=== PATIENT | male | born 1950 | race Caucasian/White ===

== ENCOUNTER → 2019-09-07 08:51 | Outpatient (CLI) | payer MEDICARE, BC, SELFPAY ==
[2019-09-08 16:16] LABS: Covid-19 Nasal PCR Sendout Lex NOT DETECTED
--- NOTE | 2019-09-08 17:31 | PC.NURSE ---
Notified national account manager and patient of negative COVID results. Informed patient he was clear to proceed with his procedure on 09/09/2019.
== END ==
PROVIDERS: Visit Provider Urology
DX: Z03.818 Encounter for observation for suspected exposure to other biological agents ruled out (principal); C67.9 Malignant neoplasm of bladder, unspecified
CPT/HCPCS: U0003

== ENCOUNTER 2019-09-09 09:59 | Day surgery (SDC) | payer MEDICARE, BC, SELFPAY ==
--- NOTE | 2019-09-06 12:19 | SUR.PREOP ---
09/06/19 @ 1213--PHONE CALL MADE TO PATIENT. PATIENT UNDERSTANDS THAT LAB WORK AND COVID-19 TESTING NEEDS TO BE COMPLETED @ 0930 ON 09/07/19. PATIENT UNDERSTANDS IF LAB WORK AND COVID-19 TESTS ARE NOT COMPLETED BY 12PM ON THAT DATE, THE SURGERY SCHEDULED WILL BE CANCELLED AND RESCHEDULED FOR ANOTHER TIME.
[2019-09-06 14:11] VITALS: BMI 27.2
[2019-09-09 10:12] VITALS: BP 144/84; PULSE 92; RESP 18; TEMP 36.7; O2SAT 97
[2019-09-09 10:26] LABS: POC Glucose,Bedside 234 (70-110)
[2019-09-09 11:28] VITALS: BP 137/82; PULSE 71; RESP 16; TEMP 36.9; O2SAT 95
[2019-09-09 11:41] VITALS: BP 137/82; PULSE 71; RESP 18; TEMP 36.9; O2SAT 95
--- NOTE | 2019-09-09 12:44 | P.OP_ITS ---
Date of procedure: 09/09/19 Pre-op Diagnosis:: History of bladder cancer Post-op Diagnosis:: Same Procedure performed:: Surveillance cystoscopy Surgeon:: Cesar Ortega MD Anesthesia: local Estimated blood loss (mL): 0 Clinical Note:: Patient is a 69-year-old white male with history of bladder cancer. His last bladder tumor recurrence was March 2018. His last cystoscopic evaluation was December 2018. He underwent maintenance BCG and January. Operative findings:: No evidence of bladder tumor recurrence. Operative note:: Patient taken to the operating room after informed consent was obtained. On the stretcher he was prepped and draped in the standard surgical fashion and 2% lidocaine placed into the urethra. After few minutes the clamp was removed and a flexible cystoscope introduced into the urethral meatus into the prostatic urethra which showed some moderate hyperplasia. The bladder was entered and e xamined in a systematic fashion. There is no evidence of recurrent bladder tumors, mucosal normalities, stones, diverticula or trabeculation. The ureteral orifices were in the normal anatomic position with clear reflux of urine. Small median lobe was noted on retroflexion of the scope. Scope removed patient procedure well no complications. We discussed a course of maintenance BCG and we will arrange this in the office in the next few weeks. Of note patient was previously on tamsulosin but he states he ran out and had no change in his urinary symptoms so he is continued off of the medication without any recurrence of lower urinary tract symptoms. Condition: stable Disposition: same day Specimens:: None Complications:: None
== END 2019-09-09 11:41 | disposition home or self-care (01) ==
LOC: OUTP 10:01
PROVIDERS: Visit Provider Urology
DX: Z85.51 Personal history of malignant neoplasm of bladder (principal); E11.9 Type 2 diabetes mellitus without complications; I10 Essential (primary) hypertension
CPT/HCPCS: 52000; 82962

== ENCOUNTER 2019-09-13 08:35 | Outpatient (CLI) | payer MEDICARE, BC, SELFPAY ==
[2019-09-13 08:42] VITALS: BMI 28.4
[2019-09-13 08:50] VITALS: BP 135/78; PULSE 64; RESP 18; TEMP 36; O2SAT 97
--- NOTE | 2019-09-13 12:33 | PC.NURSE ---
DR PRESTON NOTIFIED THAT NO URINE NOTED IN URINARY DRAINAGE BAG AFTER 1 HR OF F/C BEING IN PLACE. BLOOD NOTED COMING AROUND CATHETER FROM TIP OF PENIS AND CATHETER TUBING FILLED WITH BLOOD WELL SMALL AMOUNT IN DRAINGE BAG. DR PRESTON CAME TO PT'S BEDSIDE. ATTEMPTED TO PLACE ANOTHER 16 FR F/C WITHOUT SUCCESS THEN INSERTED A 16 FR COUDE WITH 10 ML BALLOON. HOOKED TO LEG BAG. INSTRUCTED PT TO LEAVE F/C IN UNTIL MON AND TAUGHT PT HOW TO REMOVE F/C AND HOW TO DRAIN LEG BAG. DR PRESTON STATED HE WILL HOLD VALSTAR TODAY AND HAVE PT RETURN IN A MONTH TO RESUME CHEMO.
== END 2019-09-13 11:45 | disposition home or self-care (01) ==
LOC: INF 08:40
PROVIDERS: Visit Provider Urology
DX: E11.65 Type 2 diabetes mellitus with hyperglycemia (principal)
CPT/HCPCS: G0463

== ENCOUNTER 2019-11-15 08:55 | Outpatient (CLI) | payer MEDICARE, BC, SELFPAY ==
[2019-11-15 09:02] VITALS: BMI 28.7
[2019-11-15 09:21] LABS: Basophils % 0.6 % (0.1-2.0); Eosinophils # 0.2 K/mm3 (0.0-0.4); Eosinophils % 3.3 % (0.1-12.0); Hematocrit 44.7 % (42.0-52.0); Hemoglobin 15.3 g/dL (14.1-18.0); Lymphocytes # 1.3 K/mm3 (0.7-4.5); Lymphocytes % 27.1 % (10-50); Mean Corpuscular HGB Conc 34.3 g/dL (31.8-35.4); Mean Corpuscular Hemoglobin 32.9 pg (27.0-31.2); Mean Corpuscular Volume 95.8 fl (80-94); Mean Platelet Volume 8.3 fl (7.4-10.4); Monocytes # 0.3 K/mm3 (0.1-1.0); Monocytes % 5.9 % (1.7-9.3); Neutrophils # 2.9 K/mm3 (1.8-7.8); Platelet Count 154 K/mm3 (142-424); Red Blood Count 4.67 M/mm3 (4.60-6.20); Red Cell Distribution Width 13.3 % (11.5-17.5); White Blood Count 4.6 K/mm3 (4.8-10.8)
[2019-11-15 10:00] VITALS: BP 112/74; PULSE 68; RESP 20; TEMP 36.9; O2SAT 95
[2019-11-15 11:00] VITALS: PULSE 68; RESP 20; TEMP 36.9; O2SAT 95
[2019-11-15 11:30] VITALS: BP 112/74; PULSE 68; RESP 20; TEMP 36.9
[2019-11-15 12:30] VITALS: BP 154/74; PULSE 68; RESP 20
[2019-11-15 13:10] VITALS: BP 112/74; PULSE 68; RESP 20; TEMP 36.9; O2SAT 95
== END 2019-11-15 13:10 | disposition home or self-care (01) ==
LOC: INF 09:00
PROVIDERS: Visit Provider Urology
DX: Z51.11 Encounter for antineoplastic chemotherapy (principal); C67.9 Malignant neoplasm of bladder, unspecified
CPT/HCPCS: 36415; 51720; 85025; J9357

== ENCOUNTER 2019-11-29 08:40 | Outpatient (CLI) | payer MEDICARE, BC, SELFPAY ==
[2019-11-29] VITALS (10 sets, daily range): BP systolic 128–166; BP diastolic 65–92; PULSE 67–83; RESP 18; TEMP 36.3–36.6; O2SAT 95; BMI 28.7
--- NOTE | 2019-11-29 14:23 | PC.NURSE ---
1025 - PREMEDICATED WITH TYLENOL 650MG PO AT THIS TIME.
== END 2019-11-29 13:25 | disposition home or self-care (01) ==
LOC: INF 08:46
PROVIDERS: Visit Provider Urology
DX: Z51.11 Encounter for antineoplastic chemotherapy (principal); C67.9 Malignant neoplasm of bladder, unspecified
CPT/HCPCS: 51720; J9357

== ENCOUNTER 2019-12-10 08:48 | Outpatient (CLI) | payer MEDICARE, BC, SELFPAY ==
[2019-12-10 08:52] VITALS: BMI 28.7
[2019-12-10 09:05] LABS: Basophils % 0.6 % (0.1-2.0); Eosinophils # 0.1 K/mm3 (0.0-0.4); Eosinophils % 2.9 % (0.1-12.0); Hematocrit 45.7 % (42.0-52.0); Lymphocytes # 1.1 K/mm3 (0.7-4.5); Lymphocytes % 23.9 % (10-50); Mean Corpuscular Hemoglobin 32.4 pg (27.0-31.2); Mean Corpuscular Volume 92.5 fl (80-94); Mean Platelet Volume 7.2 fl (7.4-10.4); Monocytes # 0.3 K/mm3 (0.1-1.0); Monocytes % 5.5 % (1.7-9.3); Neutrophils # 3.1 K/mm3 (1.8-7.8); Platelet Count 151 K/mm3 (142-424); Red Blood Count 4.93 M/mm3 (4.60-6.20); Red Cell Distribution Width 13.1 % (11.5-17.5); White Blood Count 4.7 K/mm3 (4.8-10.8)
[2019-12-10 10:25] VITALS: BP 161/89; PULSE 81; RESP 18; TEMP 36.8
[2019-12-10 10:55] VITALS: BP 147/78; PULSE 78; RESP 18
[2019-12-10 11:25] VITALS: BP 162/82; PULSE 77; RESP 20
[2019-12-10 11:55] VITALS: BP 155/83; PULSE 71; RESP 18
[2019-12-10 12:40] VITALS: BP 167/92; PULSE 80; RESP 18
== END 2019-12-10 12:40 | disposition home or self-care (01) ==
LOC: INF 08:48
PROVIDERS: Visit Provider Urology
DX: Z51.11 Encounter for antineoplastic chemotherapy (principal); C67.9 Malignant neoplasm of bladder, unspecified
CPT/HCPCS: 51720; 85025; J9357

== ENCOUNTER → 2020-02-26 16:18 | Outpatient (CLI) | payer MEDICARE, BC, SELFPAY ==
[2020-02-26 18:35] LABS: Coronavirus 19 IgG Antibody Negative (Negative); Coronavirus 19 IgM Antibody Negative (Negative)
== END ==
PROVIDERS: Visit Provider Urology
DX: Z85.51 Personal history of malignant neoplasm of bladder (principal)
CPT/HCPCS: 36415; 86328

== ENCOUNTER 2020-02-28 08:24 | Day surgery (SDC) | payer MEDICARE, BC, SELFPAY ==
[2020-02-26 12:56] VITALS: BMI 28.7
[2020-02-28 09:11] VITALS: BP 144/84; PULSE 66; RESP 18; TEMP 36.2; O2SAT 98
[2020-02-28 09:35] VITALS: BP 136/71; PULSE 70; RESP 15; TEMP 36.4; O2SAT 99
--- NOTE | 2020-02-28 12:08 | HMH.OPNOTE ---
Date of procedure: 02/28/20 Pre-op Diagnosis:: History of bladder cancer Post-op Diagnosis:: No evidence of recurrence of bladder cancer today Procedure performed:: Surveillance cystoscopy Surgeon:: Cesar Ortega MD Anesthesia: local Estimated blood loss (mL): 0 Clinical Note:: 69-year-old white male with a history of bladder cancer. His last resection was 2017 and he underwent maintenance Valstar intravesically 2 months ago. He returns today for routine surveillance cystoscopy. He denies any lower urinary tract symptoms or hematuria. Operative findings:: No evidence of recurrence today. Operative note:: Patient taken to the treatment room after informed consent was obtained. On the stretcher he was prepped and draped in the standard surgical fashion and 2% lidocaine placed into the urethra. Urethra was clamped for 5 minutes and the clamp was then removed and the flexible cystoscope introduced into the urethral meatus. It passed to the prostatic urethra which showed some moderate hyperplasia. The bladder was entered without difficulty and examined in a systematic fashion. There was no evidence of recurrent bladder tumors, mucosal abnormalities, stones, trabeculation or diverticula. The ureteral orifices in their normal anatomic position. The scope was retroflexed showing a small median lobe. Scope then removed. Patient tolerated the procedure well and there are no complications. We will plan on seeing him back in 6 months to repeat a 3 weeks series of maintenance Valstar. Condition: stable Disposition: same day Specimens:: None Complications:: None
== END 2020-02-28 09:40 | disposition home or self-care (01) ==
LOC: OUTP 08:26
PROVIDERS: PCP Family Medicine; Visit Provider Urology
PROC: (CPT 52000; principal; 2020-02-28 09:00)
DX: Z85.51 Personal history of malignant neoplasm of bladder; I10 Essential (primary) hypertension; E11.9 Type 2 diabetes mellitus without complications; N40.0 Benign prostatic hyperplasia without lower urinary tract symptoms
CPT/HCPCS: 52000

== ENCOUNTER 2020-08-11 08:50 | Outpatient (CLI) | payer MEDICARE, BC, SELFPAY ==
[2020-08-11 08:52] VITALS: BMI 29.1
[2020-08-11 09:06] LABS: Basophils % 0.9 % (0.1-2.0); Eosinophils # 0.1 K/mm3 (0.0-0.4); Eosinophils % 2.4 % (0.1-12.0); Hematocrit 45.8 % (42.0-52.0); Hemoglobin 15.1 g/dL (14.1-18.0); Lymphocytes # 1.1 K/mm3 (0.7-4.5); Lymphocytes % 26.8 % (10-50); Mean Corpuscular Hemoglobin 30.5 pg (27.0-31.2); Mean Corpuscular Volume 92.6 fl (80-94); Mean Platelet Volume 7.3 fl (7.4-10.4); Monocytes # 0.3 K/mm3 (0.1-1.0); Monocytes % 6.8 % (1.7-9.3); Neutrophils # 2.5 K/mm3 (1.8-7.8); Neutrophils % 63.1 % (37.0-80.0); Platelet Count 155 K/mm3 (142-424); Red Blood Count 4.94 M/mm3 (4.60-6.20); Red Cell Distribution Width 13.6 % (11.5-17.5)
[2020-08-11 10:20] VITALS: BP 162/90; PULSE 72; RESP 18; TEMP 36.6; O2SAT 96
[2020-08-11 10:50] VITALS: BP 134/62; PULSE 76; RESP 18
[2020-08-11 11:20] VITALS: BP 148/77; PULSE 79; RESP 18
[2020-08-11 11:50] VITALS: BP 138/73; PULSE 72; RESP 18
[2020-08-11 12:42] VITALS: BP 136/75; PULSE 78; RESP 18
--- NOTE | 2020-08-12 15:06 | DIET.NUTRFU ---
Pt contacted for oncology nutrition consult for first dose chemotherapy. Pt states he is having no nutritional side effects or concerns. Encouraged pt to contact this RD at any time with any questions/concerns.
== END 2020-08-11 12:42 | disposition home or self-care (01) ==
LOC: INF 08:50
PROVIDERS: Visit Provider Urology
DX: Z51.11 Encounter for antineoplastic chemotherapy (principal); C67.9 Malignant neoplasm of bladder, unspecified
CPT/HCPCS: 51720; 85025; J9357

== ENCOUNTER 2020-08-18 08:30 | Outpatient (CLI) | payer MEDICARE, BC, SELFPAY ==
[2020-08-18 09:58] VITALS: BMI 36.7
[2020-08-18 10:25] VITALS: BP 140/84; PULSE 80; RESP 18; TEMP 36.4; O2SAT 94
[2020-08-18 10:55] VITALS: BP 123/60; PULSE 76; RESP 18
[2020-08-18 11:10] VITALS: BP 143/81; PULSE 77; RESP 18
--- NOTE | 2020-08-18 11:10 | PC.NURSE ---
1110-pt had one large spasm and did leak;got pt cleaned up and decided to move from right side to back early
[2020-08-18 11:40] VITALS: BP 154/54; PULSE 79; RESP 18
[2020-08-18 12:10] VITALS: RESP 18
[2020-08-18 12:37] VITALS: BP 140/83; PULSE 75; RESP 18
== END 2020-08-18 12:37 | disposition home or self-care (01) ==
LOC: INF 08:31
PROVIDERS: Visit Provider Urology
DX: Z51.11 Encounter for antineoplastic chemotherapy (principal); C67.9 Malignant neoplasm of bladder, unspecified
CPT/HCPCS: 51720; J9357

== ENCOUNTER 2020-08-25 08:21 | Outpatient (CLI) | payer MEDICARE, BC, SELFPAY ==
[2020-08-25 08:21] VITALS: BMI 29.1
[2020-08-25 08:47] LABS: Basophils % 0.9 % (0.1-2.0); Eosinophils # 0.1 K/mm3 (0.0-0.4); Eosinophils % 2.8 % (0.1-12.0); Hematocrit 46.2 % (42.0-52.0); Hemoglobin 15.3 g/dL (14.1-18.0); Lymphocytes # 1.2 K/mm3 (0.7-4.5); Lymphocytes % 29.2 % (10-50); Mean Corpuscular HGB Conc 33.2 g/dL (31.8-35.4); Mean Corpuscular Hemoglobin 30.6 pg (27.0-31.2); Mean Corpuscular Volume 92.2 fl (80-94); Mean Platelet Volume 7.9 fl (7.4-10.4); Monocytes # 0.3 K/mm3 (0.1-1.0); Monocytes % 7.4 % (1.7-9.3); Neutrophils # 2.5 K/mm3 (1.8-7.8); Neutrophils % 59.8 % (37.0-80.0); Platelet Count 153 K/mm3 (142-424); Red Blood Count 5.01 M/mm3 (4.60-6.20); Red Cell Distribution Width 13.5 % (11.5-17.5); White Blood Count 4.2 K/mm3 (4.8-10.8)
[2020-08-25 10:20] VITALS: BP 145/78; PULSE 78; RESP 20; TEMP 36.9; O2SAT 98
[2020-08-25 10:50] VITALS: BP 140/74; PULSE 75; RESP 20; TEMP 36.9; O2SAT 95
[2020-08-25 11:20] VITALS: BP 145/75; PULSE 78; RESP 20; TEMP 36.9; O2SAT 95
[2020-08-25 11:50] VITALS: BP 133/78; PULSE 78; RESP 20; TEMP 37.1; O2SAT 95
[2020-08-25 12:20] VITALS: BP 135/74; PULSE 68; RESP 20; TEMP 37.1; O2SAT 96
== END 2020-08-25 12:30 | disposition home or self-care (01) ==
LOC: INF 08:21
PROVIDERS: Visit Provider Urology
DX: Z51.11 Encounter for antineoplastic chemotherapy (principal); C67.9 Malignant neoplasm of bladder, unspecified
CPT/HCPCS: 36415; 51720; 85025; J9357

== ENCOUNTER → 2020-10-28 14:47 | Outpatient (CLI) | payer MEDICARE, BC, SELFPAY | PROVIDERS: Visit Provider Urology | DX: C67.9 Malignant neoplasm of bladder, unspecified (principal); Z01.812 Encounter for preprocedural laboratory examination; Z20.822 Contact with and (suspected) exposure to COVID-19 | CPT/HCPCS: U0003 ==

== ENCOUNTER 2020-10-30 07:11 | Day surgery (SDC) | payer MEDICARE, BC, SELFPAY ==
[2020-10-26 13:12] VITALS: BMI 28.3
[2020-10-30 07:26] VITALS: BP 159/74; PULSE 78; RESP 18; TEMP 36.7; O2SAT 97
[2020-10-30 07:39] LABS: POC Glucose,Bedside 183 (70-110)
[2020-10-30 09:55] VITALS: BP 161/93; PULSE 67; RESP 18; TEMP 36.4; O2SAT 95
[2020-10-30 10:05] VITALS: BP 155/86; PULSE 67; RESP 18; TEMP 36.4; O2SAT 95
--- NOTE | 2020-10-30 12:54 | [facility]H.OPNOTE ---
Date of procedure: 10/30/20 Pre-op Diagnosis:: History of bladder cancer Post-op Diagnosis:: History of bladder cancer with no recurrence noted today Procedure performed:: Surveillance cystoscopy Surgeon:: Cesar Ortega MD Anesthesia: local Estimated blood loss (mL): 0 Clinical Note:: Patient with history of bladder cancer presents for surveillance cystoscopy. Cystoscopy showed no evidence of recurrences. Operative findings:: No evidence of bladder cancer recurrence today. Operative note:: Patient taken to the cystoscopy suite after informed consent was obtained. On the stretcher he was prepped and draped in the standard surgical fashion and 2% lidocaine placed into the urethra and the urethra clamped for 5 minutes. After 5 minutes the clamp removed and the flexible cystoscope introduced into the urethral meatus. Passed into the bladder without difficulty and the bladder examined in a systematic fashion. There is no evidence of bladder tumor recurrence or other mucosal abnormalities. There is no evidence of trabeculation, cellules, stones or diverticula. The ureteral orifices in their normal anatomic position with clear efflux of urine. The scope was retroflexed showing no evidence of a median lobe. Bladder neck and urethra were normal. The scope removed the patient tolerated the procedure well there were no complications. We will see him back in 1 year with surveillance cystoscopy. He has undergone previous maintenance Valstar treatments but we will not plan on any further at this point. Condition: stable Disposition: same day Specimens:: None Complications:: None
== END 2020-10-30 10:05 | disposition home or self-care (01) ==
PROVIDERS: PCP Family Medicine; Visit Provider Urology
DX: Z09 Encounter for follow-up examination after completed treatment for conditions other than malignant neoplasm (principal); Z85.51 Personal history of malignant neoplasm of bladder; E11.9 Type 2 diabetes mellitus without complications; E78.5 Hyperlipidemia, unspecified; I10 Essential (primary) hypertension; N40.0 Benign prostatic hyperplasia without lower urinary tract symptoms; Z90.49 Acquired absence of other specified parts of digestive tract
CPT/HCPCS: 52000; 82962

== ENCOUNTER → 2021-10-27 12:22 | Outpatient (CLI) | payer MEDICARE, BC, SELFPAY | PROVIDERS: PCP Family Medicine; Visit Provider Urology | DX: C67.9 Malignant neoplasm of bladder, unspecified (principal); Z01.812 Encounter for preprocedural laboratory examination; Z20.822 Contact with and (suspected) exposure to COVID-19 | CPT/HCPCS: C9803; U0003; U0005 ==

== ENCOUNTER 2021-10-29 08:43 | Day surgery (SDC) | payer MEDICARE, BC, SELFPAY ==
[2021-10-27 11:05] VITALS: BMI 28.3
[2021-10-29 09:09] VITALS: BP 152/83; PULSE 78; RESP 16; TEMP 36.7; O2SAT 98
[2021-10-29 10:00] VITALS: BP 134/75; PULSE 74; RESP 16; TEMP 36.4; O2SAT 95
--- NOTE | 2021-10-29 10:39 | [facility]H.OPNOTE ---
Date of procedure: 10/29/21 Pre-op Diagnosis:: History of bladder cancer Post-op Diagnosis:: No evidence of recurrent bladder cancer today. Procedure performed:: Surveillance cystoscopy Surgeon:: Cesar Ortega MD Anesthesia: local Estimated blood loss (mL): 0 Clinical Note:: 71-year-old white male with history of bladder cancer presents for 1 year surveillance cystoscopy. He denies any interval gross hematuria. Patient has undergone some maintenance BCG and Valstar treatments in the past. Operative findings:: No evidence of recurrent bladder cancer. Operative note:: Patient taken to the cystoscopy suite after informed consent was obtained. On the stretcher he was prepped and draped in the standard surgical fashion and 2% lidocaine placed into the urethra and clamped. After 5 minutes the flexible cystoscope introduced into the urethra the past to the prostatic urethra which showed some moderate by lobar hyperplasia. The bladder was entered and examined in a systematic fashion. There is no evidence of recurrent bladder tumors, mucosal abnormalities, stones, diverticula or trabeculation. The ureteral orifices in their normal anatomic position with clear efflux of urine. Scope was retroflexed showing a normal bladder neck. Scope then removed patient tolerated procedure well and there are no complications. We will see him back in 1 year with surveillance cystoscopy. Condition: stable Disposition: same day Specimens:: None Complications:: None
[2021-10-29 14:05] LABS: POC Glucose,Bedside 189 (70-110)
== END 2021-10-29 10:10 | disposition home or self-care (01) ==
LOC: OUTP 08:44
PROVIDERS: PCP Family Medicine; Visit Provider Urology
DX: Z12.6 Encounter for screening for malignant neoplasm of bladder (principal); Z85.51 Personal history of malignant neoplasm of bladder; E11.9 Type 2 diabetes mellitus without complications; I10 Essential (primary) hypertension; E78.5 Hyperlipidemia, unspecified
CPT/HCPCS: 52000; 82962